=== PATIENT | male | born 1970 | race Caucasian/White ===

== ENCOUNTER 2024-02-05 15:14 | Emergency (ER) | payer OTHER ==
[2024-02-05 15:23] VITALS: BP 153/87; PULSE 81; RESP 18; TEMP 97.9; BMI 47.9
[2024-02-05] MEDS: OXYMETAZOLINE 0.05% NASAL SOLUTION 15 ML BOTTLE NS ONE (16:35)
== END 2024-02-05 16:56 | disposition home or self-care (01) ==
LOC: JERFT 15:14 → JER 15:14 → JERFT 16:56
DX: R04.0 Epistaxis (principal)
CPT/HCPCS: 99283-25